=== PATIENT | male | born 1960 | race Caucasian/White ===

== ENCOUNTER 2017-05-01 08:45 | Inpatient (IN) | payer OTHER ==
[~2017-05-01] VITALS: Ht 185.4 cm; Wt 79.4 kg
--- NOTE | 2017-05-01 11:40 | NUR ---
PRE ADMISSION PATIENT MET IN THE INTAKE OFFICE @ 1140 ON 05/01/17. PATIENT IS ALERT AND ORIENTED, HE IS ACCOMPANIED BY HIS . PATIENT SMELLS OF ALCOHOL. ADMITTING VITALS BP116/72, HR 83, O2 96% , T 98 HT 6'1" WEIGHT 175LBS. PATIENT STATES HE IS HERE TO DETOX FROM ALCOHOL. EXPLAINED TO PATIENT THAT ANY NARCOTICS BROUGHT INTO THE HOSPITAL WOULD BE DISPOSED OFF, PT STATES UNDERSTANDING. WILL CONTINUE ASSESSMENT WHEN PATIENT IS ON THE FLOOR.
[2017-05-01] MEDS ORDERED: LORAZEPAM 1 MG TABLET PO PRN ×2 (12:15)
[2017-05-01] MEDS ORDERED: NICOTINE POLACRILEX 4 MG GUM-PK OF TEN BC PRN (12:15)
[2017-05-01] MEDS ORDERED: hydrALAZINE HCL 50 MG TABLET PO PRN (12:15)
[2017-05-01] MEDS ORDERED: DICYCLOMINE HCL 20 MG TABLET PO PRN (12:15)
[2017-05-01] MEDS ORDERED: MIRALAX 17 GM POWD.PACK PO PRN (12:15)
[2017-05-01] MEDS ORDERED: MAG HYDROX/AL HYDROX/SIMETH 30 ML LIQUID UDC PO PRN (12:15)
[2017-05-01] MEDS ORDERED: MAGNESIUM HYDROXIDE 30 ML LIQUID UDC PO PRN (12:15)
[2017-05-01] MEDS ORDERED: ONDANSETRON 4 MG/2 ML VIAL IM PRN (12:15)
[2017-05-01] MEDS ORDERED: LOPERAMIDE HCL 2 MG CAPSULE PO PRN ×2 (12:15)
[2017-05-01] MEDS ORDERED: LORAZEPAM 2 MG/1 ML VIAL IM PRN (12:15)
[2017-05-01] MEDS ORDERED: THIAMINE HCL 200 MG/2 ML VIAL IM ONE (12:15)
[2017-05-01] MEDS ORDERED: diphenhydrAMINE 50 MG CAPSULE PO PRN (12:15)
[2017-05-01] MEDS ORDERED: NICOTINE 14 MG/24HR PATCH TD PRN (12:15)
[2017-05-01] MEDS ORDERED: CHLO473M3 PO (12:46)
[2017-05-01] MEDS ORDERED: METO-356 PO (12:46)
[2017-05-01] MEDS ORDERED: TAMS0.4C34 PO (12:46)
[2017-05-01] MEDS ORDERED: ENZA40CA PO (12:47)
[2017-05-01] MEDS ORDERED: APOTEX PO (12:47)
[2017-05-01] MEDS ORDERED: VITA100D6 PO (12:47)
[2017-05-01] MEDS ORDERED: CYAN100071 PO (12:47)
[2017-05-01] MEDS ORDERED: THIAMINE HCL 100 MG TABLET PO ONE (13:00)
--- NOTE | 2017-05-01 13:00 | NUR ---
ADMISSION NOTE PATIENT IS A 57 YR OLD MALE ADMITTED TO [facility] ON 05/01/17. PATIENT APPEARS MILDLY INTOXICATED UPON ADMISSION AND SMELLS STRONGLY OF ALCOHOL. SPEECH IS SLIGHTLY SLURRED. PATIENT IS HERE TO DETOX FROM ALCOHOL, HISTORY : GIN - 500-750 ML PO DAILY FOR THE PAST YEAR, LAST CONSUMED THIS AM PRIOR TO ADMISSION. PATIENT STATES DUE TO LOSING HIS SISTER THIS PAST YEAR HIS DRINKING HAS INCREASED . PATIENT STATES HE HAS STAGE 4 PROSTATE CANCER ( DIAGNOSED IN DECEMBER 2016 AND IS CURRENTLY BEING TREATED AT [facility] IN [place] BY DR WESTON. PATIENT DECLINES THE PNE/FLU VACCINES DUE TO HIS IMMUNOCOMPROMISED STATE. PATIENT STATES HE WAS SOBER FOR 1.5 YEARS [id number] AFTER GETTING A DUI AND HAVING TO GO TO DRUG/ALCOHOL CLASSES. HE STATES HE GOT ANOTHER DUI THIS YEAR FEB 2017 AND REALIZED THAT HE HAS A SERIOUS PROBLEM AND NEEDED HELP. THIS IS HIS FIRST TIME IN TREATMENT. PATIENT HAS A HISTORY OF OSTEONECROSIS OF THE JAW, HTN, DEPRESSIVE DISORDER, ANXIETY DISORDER AND INSOMNIA. THERE IS A FAMILY HISTORY OF ALCOHOL ABUSE ( HIS 4 SIBLINGS ) AND BIPOLAR ( SISTER WHO PASSED LAST YEAR) PATIENT STATES HE HAS NO SEIZURE HISTORY AND NO HISTORY OF SUICIDE IDEATION OR INTENT. PATIENT STATES HE IS HERE TODAY BECAUSE HE REALIZES AFTER GETTING A DUI IN FEBRUARY 2017 HE WAS DRINKING TOO MUCH AND IT WAS GETTING WORSE. Addendum: 05/01/17 at 1735 by KEN SIMENTAL RN CORRECTION : PROSTATE CANCER WAS DIAGNOSED IN DECEMBER 2014 DR SHELDON HAS SEEN PATIENT AND WILL START AN ATIVAN TAPER TODAY, SKIN INTACT UPON CHECK, CALL LIGHT WITHIN REACH, WILL CONTINUE TO FOLLOW MD PLAN OF CARE. [facility] ON ADMISSION 6 DUE TO PATIENT STILL BEING INTOXICATED.
--- NOTE | 2017-05-01 13:05 | NUR ---
PRN MEDS MOTRIN 600MG PO AND TYLENOL 650 MG PO GIVEN FOR REPORTS OF BODY ACHES WILL CONTINUE TO MONITOR
[2017-05-01] MEDS: ACETAMINOPHEN 325 MG TABLET PO PRN (13:06)
[2017-05-01 13:08] LABS: *AMPHETAMINE, URINE NEGATIVE (NEGATIVE); *BARBITURATE, URINE NEGATIVE (NEGATIVE); *CANNABINOID, URINE POSITIVE (NEGATIVE); *COCCAINE, URINE NEGATIVE (NEGATIVE); *OPIATE, URINE NEGATIVE (NEGATIVE); *PHENCYCLIDINE SCREEN,URINE NEGATIVE (NEGATIVE)
[2017-05-01] MEDS ORDERED: TRAZODONE 50 MG TABLET PO PRN (13:30)
[2017-05-01] MEDS: METHOCARBAMOL 500 MG TABLET PO PRN (13:39)
--- NOTE | 2017-05-01 13:40 | NUR ---
PRN ROBAXIN 750MG PO ROBAXIN GIVEN FOR C/O PAIN 07/28, WILL REASSESS
--- NOTE | 2017-05-01 14:40 | NUR ---
PRN REASSESS PT STATES MOTRIN, TYLENOL AND ROBAXIN ALL EFFECTIVE IN RELIEVING IS BODY ACHES , NOW 04/27 CONTINUE TO MONITOR
[2017-05-01 16:24] LABS: BASOPHILS # (AUTO) 0.1 K/uL (0.0-8.0); EOSINOPHILS # (AUTO) 0.1 K/uL (0.0-0.7); EOSINOPHILS % (AUTO) 1.2 % (0.0-7.0); HEMATOCRIT 46.9 % (36.7-47.1); HEMOGLOBIN 16.5 g/dL (12.5-16.3); LYMPHOCYTES # (AUTO) 3.2 K/uL (20.0-40.0); LYMPHOCYTES % (AUTO) 32.1 % (20.5-51.5); MEAN CORPUSCULAR HEMOGLOBIN 35.4 uug (23.8-33.4); MEAN CORPUSCULAR HGB CONC 35 g/dL (32.5-36.3); MEAN CORPUSCULAR VOLUME 100.8 fL (73.0-96.2); MONOCYTES # (AUTO) 0.5 K/uL (2.0-10.0); MONOCYTES % (AUTO) 4.9 % (0.0-11.0); NEUTROPHILS # (AUTO) 6.1 K/uL (1.8-8.9); NEUTROPHILS % (AUTO) 60.8 % (38.5-71.5); PLATELET COUNT (AUTO) 227 K/uL (152-348); RED BLOOD CELL COUNT(AUTO) 4.66 MIL/uL (4.06-5.63); WHITE BLOOD COUNT (AUTO) 10.1 K/uL (3.6-10.2)
[2017-05-01 16:29] LABS: BILIRUBIN,TOTAL 0.3 mg/dL (0.2-1.0); CREATININE 0.7 mg/dL (0.6-1.3); MAGNESIUM 1.6 mg/dL (1.8-2.4); TOTAL PROTEIN, SERUM 7.4 g/dL (6.4-8.2)
[2017-05-01] MEDS: [UNRECOGNIZED DRUG - OTHER] PO SCH (16:49)
[2017-05-01] MEDS: PENTOXIFYLLINE PO SCH (16:49)
[2017-05-01] MEDS: LORAZEPAM 1 MG TABLET PO SCH ×2 (16:50→21:23)
[2017-05-01] MEDS: CHLORHEXIDINE PO SCH (16:53)
[2017-05-01] MEDS: [UNRECOGNIZED DRUG - OTHER] PO SCH (16:53)
[2017-05-01 17:00] VITALS: BP 133/88
[2017-05-01] MEDS ORDERED: MAGNESIUM OXIDE 400 MG TABLET PO ONE (17:00)
[2017-05-01] MEDS ORDERED: PATIENT MAY USE OWN MED- MD OK PO SCH ×3 (17:00→21:00)
--- NOTE | 2017-05-01 18:59 | NUR ---
END OF SHIFT: PATIENT IS A 57 YR OLD MALE ADMITTED TODAY 05/01/17 TO [facility] FOR WITHDRAWAL FROM ALCOHOL. PATIENT IS ON A 5 DAY ATIVAN TAPER WHICH STARTED THIS AFTERNOON. PATIENT HAS PROSTATE CANCER STAGE 4 AND HAS BROUGHT HIS OWN MEDICATIONS FROM HOME BEING DISPENSED FROM PHARMACY. PATIENT HAD A FLUID INTAKE TODAY OF 1300ML, 2 VOIDS AND 1 BM. LAST CIWA 8 @ 1600. CONTINUE TO FOLLOW MD PLAN OF CARE.
--- NOTE | 2017-05-01 19:30 | NUR ---
START OF SHIFT Received 57 year old male patient admitted on 05/01/17 for ETOH withdrawal. Pt is alert and oriented x4. He started his 5 day Ativan taper today and is tolerating well. Pt noted with anxiety, tremors, restlessness, agitation, depression, irritability,sweats and flushed face. Per endorsement, he received PRN Motrin, Tylenol, and Robaxin. Last CIWA:8 at 1600. Breathing is even and unlabored, safety measures in place. Will continue to monitor.
[2017-05-01 20:00] VITALS: BP 129/79
[2017-05-01] MEDS: TAMSULOSIN PO SCH (21:23)
[2017-05-01] MEDS: [UNRECOGNIZED DRUG - OTHER] PO SCH (21:23)
[2017-05-01] MEDS: [UNRECOGNIZED DRUG - OTHER] PO SCH (21:41)
[2017-05-01] MEDS: ENZALUTAMIDE PO SCH (21:41)
[2017-05-01] MEDS: [UNRECOGNIZED DRUG - OTHER] PO SCH (21:42)
[2017-05-01] MEDS: METOPROLOL PO SCH (21:42)
[2017-05-02] VITALS: BP 113/64
[2017-05-02 04:00] VITALS: BP 118/72
--- NOTE | 2017-05-02 07:07 | NUR ---
END OF SHIFT Pt is a 57 year old male patient admitted on 05/01/17 for ETOH withdrawal. He remains alert and oriented x4. He started his 5 day Ativan taper yesterday. Currently on day 25 and tolerating well. Pt was noted with anxiety, tremors, restlessness, agitation, depression, irritability,sweats and flushed face during shift. He did not receive or request PRN medications. He was able to sleep a total of 11 hrs, Intake:855mL, Void: x1, BM:0, CIWA:9 at 2000. Breathing is even and unlabored, safety measures in place. Endorsed to AM shift.
--- NOTE | 2017-05-02 07:30 | NUR ---
START OF SHIFT Received report from pipe smoker machine operator nurse. Pt is getting ready for the day. He is a 57 yo male admitted to [facility] on 05/01 for ETOH dependence. He is A&O and ambulatory. PMH of prostate cancer and HTN. Pt started a 5 day Ativan taper on 05/01. He brought several home medications. Pt has a flat affect and depressed mood. He has full body tremors, facial flushing, and moist skin. Pt reports sweating while sleeping. Safety measures in place.
[2017-05-02 08:00] VITALS: BP 142/79
[2017-05-02] MEDS: [UNRECOGNIZED DRUG - OTHER] PO SCH ×2 (08:50→17:26)
[2017-05-02] MEDS: CHLORHEXIDINE PO SCH ×2 (08:50→17:26)
[2017-05-02] MEDS: LORAZEPAM 1 MG TABLET PO SCH ×3 (08:51→20:57)
[2017-05-02] MEDS: FOLIC ACID 1 MG TABLET PO SCH (08:51)
[2017-05-02] MEDS: VITAMIN E PO SCH (08:52)
[2017-05-02] MEDS: [UNRECOGNIZED DRUG - OTHER] PO SCH (08:52)
[2017-05-02] MEDS: THIAMINE HCL 100 MG TABLET PO SCH (08:53)
[2017-05-02] MEDS: MULTIVITAMINS,THERAPEUTIC TABLET PO SCH (08:53)
[2017-05-02] MEDS: PENTOXIFYLLINE PO SCH ×3 (08:54→17:26)
[2017-05-02] MEDS: [UNRECOGNIZED DRUG - OTHER] PO SCH ×3 (08:54→17:26)
[2017-05-02] MEDS: IBUPROFEN 400 MG TABLET PO PRN (08:55)
[2017-05-02] MEDS: CYANOCOBALAMIN PO SCH (08:55)
[2017-05-02] MEDS: [UNRECOGNIZED DRUG - OTHER] PO SCH (08:55)
[2017-05-02] MEDS: ENOXAPARIN SODIUM 40 MG/0.4 ML DISP.SYRIN SQ SCH (08:58)
[2017-05-02] MEDS ORDERED: [UNRECOGNIZED DRUG - OTHER] PO SCH (09:00)
[2017-05-02] MEDS ORDERED: METOPROLOL PO SCH (09:00)
[2017-05-02] MEDS ORDERED: [UNRECOGNIZED DRUG - OTHER] PO SCH (09:00)
[2017-05-02] MEDS ORDERED: TUBERCULIN,PURIF.PROT.DERIV. 5 TU/0.1 ML TEST ID ONE (09:00)
[2017-05-02] MEDS ORDERED: ENZALUTAMIDE PO SCH (09:00)
[2017-05-02] MEDS: ONDANSETRON ODT 4 MG TAB.RAPDIS SL PRN (09:03)
--- NOTE | 2017-05-02 09:05 | NUR ---
PRN Motrin and Zofran Pt reports nausea without vomiting and bilateral shoulder pain 5/10. PRN Motrin and Zofran administered.
--- NOTE | 2017-05-02 09:35 | NUR ---
PRN Zofran reassessment PRN Zofran effective. Pt reports nausea is relieved.
--- NOTE | 2017-05-02 10:05 | NUR ---
PRN Motrin reassessment PRN Motrin effective. Pt reports shoulder pain is reduced to 2/10.
[2017-05-02 12:00] VITALS: BP 118/81
[2017-05-02] MEDS: ESCITALOPRAM OXALATE 10 MG TABLET PO SCH (13:27)
--- NOTE | 2017-05-02 13:30 | NUR ---
PRN Ativan Pt has tremors and facial flushing. CIWA score 8. PRN Ativan administered.
--- NOTE | 2017-05-02 14:30 | NUR ---
PRN Ativan reassessment PRN Ativan effective. Pt's CIWA reduced to 5. He is relaxed in bed. Tremors are reduced.
[2017-05-02 16:30] VITALS: BP 135/89
[2017-05-02] MEDS: ACETAMINOPHEN 325 MG TABLET PO PRN (18:53)
--- NOTE | 2017-05-02 18:53 | NUR ---
PRN Tylenol Pt reports generalized body aches and "arthritic pain" 07/28. PRN Tylenol administered. Will endorse to date night caregiver for follow up.
[2017-05-02] MEDS: PATIENT MAY USE OWN MED- MD OK PO SCH (19:01)
--- NOTE | 2017-05-02 19:03 | NUR ---
Nursing Note Pt requested chlorhexadine mouth was to be administered at 0900 and 2100. Okay to adjust order per Dr. Gunter. Medication administered twice today per original order. Non-administered 2099 adjusted dose. Order to continued tomorrow at 0900 and 2100.
--- NOTE | 2017-05-02 19:13 | NUR ---
START OF SHIFT NOTE: 57 year old male presented for Alcohol/"Gin" withdrawal, continues 5 day Ativan taper which tolerated well. Patent reports NKA, is on Full Code, Regular Diet, is on Fall and Seizures Precautions. Patient denies History of withdrawal-induced seizures. Past Medical History: Prostate Cancer Stage 4, HTN, Anxiety, Depression, History of Fall on his back, and got on abscess on buttock in 08/2016. Patient denies SI/HI. Patient is alert and oriented x4. Patient appears anxious, agitated, easily overwhelmed, sad with poor eye contact. Patient noted disheveled, unkempt, and uncombed. Educated in safety and hygiene care. Encouraged to independently perform hygiene care. Last CIWA=5 @1648 per outgoing day shift nurse report: Patient presented with anxiety, agitation, nausea, nervousness, body aches, myalgia, tremors, sweating, fatigue, and restlessness. PRN Motrin 400 mg PO administrated for pain @0855, PRN Zofran 4mg SL administrated for nausea @0903, PRN Ativan 1 mg PO administrated for anxiety @1327, PRN Robaxin 500 mg PO administrated for myalgia @1327, and PRN Tylenol 650 mg PO administrated for severe pain @1853 as ordered were effective per day shift nurse report. Patient remains compliant with treatment, medications and diet regime. Encouraged to fluid intake as tolerated. Encourage to attended groups activities. All needs met. Safety measures in place: Call light within reach, bed is locked in lowest position, padded bed rails up bilaterally. Patient endorsed by day shift nurse. Report received. Will continue to monitor closely.
--- NOTE | 2017-05-02 19:13 | NUR ---
END OF SHIFT Report provided to barber nurse. Pt is lying in bed watching TV. He is a 57 yo male admitted to [facility] on 05/01 for ETOH dependence. He is A&O and ambulatory. PMH of prostate cancer and HTN. Pt started a 5 day Ativan taper on 05/01. Pt has a flat affect and depressed mood. He is disheveled and not motivated for self care at this time. He reports feeling fatigued and could not make it all the way through group meetings. Pt is otherwise cooperative with treatment. He had tremors, nausea, body aches, and facial flushing. PRN Ativan, Zofran, Tylenol, and Motrin administered. He was started on Lexapro today. He drank 2300mL. Pt voided 4x and had 2 formed bowel movements. Last CIWA score 5. Safety measures in place.
[2017-05-02 20:00] VITALS: BP 128/75
[2017-05-02] MEDS: [UNRECOGNIZED DRUG - OTHER] PO SCH (20:59)
[2017-05-02] MEDS: ENZALUTAMIDE PO SCH (20:59)
[2017-05-02] MEDS: [UNRECOGNIZED DRUG - OTHER] PO SCH (20:59)
[2017-05-02] MEDS: METOPROLOL PO SCH (20:59)
[2017-05-02] MEDS: TAMSULOSIN PO SCH (21:00)
[2017-05-02] MEDS: [UNRECOGNIZED DRUG - OTHER] PO SCH (21:00)
[2017-05-03] VITALS: BP 132/98
[2017-05-03 04:00] VITALS: BP 121/74
--- NOTE | 2017-05-03 07:06 | NUR ---
END OF SHIFT NOTE Patient presented for ETOH("Gin") withdrawal, continues 5 Day Ativan Taper with tolerated well. Patient remains compliant with treatment, medications and diet regime. Patient is alert and oriented x4. Patient appears with flat effects, and sad. Education provided to use of Relaxation Techniques: deep breathing exercises, guided imagery, visualization. He is noted disheveled, unshaved, unkempt, with uncombed hair. Educated in safety and hygiene care. Encouraged to independently perform hygiene care. CIWA=9 @2000, CIWA=8@0000. The most recent CIWA=7@0400. Patient presented with anxiety, agitation, nervousness, tremors, stomach pain, sweating, body aches, fatigue, and restlessness. Patient denies SI/HI. Encouraged to increase oral fluid intake as tolerated. Encouraged to attend group activities. No PRN Medications administrated. Patient slept 5 hours, intake 1,700 ml, voided x4, stool x1. All needs met. Safe and calm environment with minimized noises was provided. Safety measures in the place: Call light within reach, bed in the lowest position locked, padded rails up x2. Patient endorsed to day shift nurse.
[2017-05-03 08:02] VITALS: BP 137/88
--- NOTE | 2017-05-03 08:10 | NUR ---
START OF SHIFT: RECEIVED PT A/O X 4. HE IS STRAIGHTENING OUT HIS ROOM. HE PRESENTS WITH ANXIOUS MOOD AND CONGRUENT AFFECT. TREMORS AND SWEATING NOTED. HE REPORTS ANXIETY AND OCCASIONAL FITS OF "GAGGING" HE DENIES N/V. MEDICATED ORDERED . ATIVAN TAPER IN PROGRESS TO MANAGE S/S OF W/D.CIWA 10 HE REPORTS ANXIETY,RESTLESSNESS AND SWEATS. HE REPORTS PAIN TO NECK AND SHOULDERS 5/10 ON PAIN SCALE. PRN MOTRIN ADMINISTERED. WILL MONITOR EFFECTIVENESS OF PRN.ENCOURAGED GROUP ATTENDANCE TO IMPROVE COPING SKILLS AND PREVENT RELAPSE. WILL CONTINUE TO MONITOR AND MANAGE S/S OF W/D.
[2017-05-03] MEDS ORDERED: LORAZEPAM 1 MG TABLET PO SCH ×2 (09:00→21:00)
--- NOTE | 2017-05-03 09:10 | NUR ---
PRN MOTRIN MILDLY EFFECTIVE. HE REPORTS PAIN IS 3/10 ON SCALE. WILL CONTINUE TO MONITOR AND OFFER SUPPORT.
[2017-05-03] MEDS: MULTIVITAMINS,THERAPEUTIC TABLET PO SCH (09:44)
[2017-05-03] MEDS: ESCITALOPRAM OXALATE 10 MG TABLET PO SCH (09:45)
[2017-05-03] MEDS: THIAMINE HCL 100 MG TABLET PO SCH (09:45)
[2017-05-03] MEDS: FOLIC ACID 1 MG TABLET PO SCH (09:45)
[2017-05-03] MEDS: PENTOXIFYLLINE PO SCH ×3 (09:47→16:47)
[2017-05-03] MEDS: VITAMIN E PO SCH (09:47)
[2017-05-03] MEDS: [UNRECOGNIZED DRUG - OTHER] PO SCH (09:47)
[2017-05-03] MEDS: [UNRECOGNIZED DRUG - OTHER] PO SCH ×3 (09:47→16:47)
[2017-05-03] MEDS: CYANOCOBALAMIN PO SCH (09:48)
[2017-05-03] MEDS: [UNRECOGNIZED DRUG - OTHER] PO SCH (09:48)
[2017-05-03] MEDS: ENOXAPARIN SODIUM 40 MG/0.4 ML DISP.SYRIN SQ SCH (09:54)
[2017-05-03] MEDS: PATIENT MAY USE OWN MED- MD OK PO SCH ×2 (09:55→20:38)
[2017-05-03] MEDS: IBUPROFEN 400 MG TABLET PO PRN (10:00)
[2017-05-03] MEDS ORDERED: KETOROLAC TROMETHAMINE 30 MG INJ IM PRN (11:00)
[2017-05-03] MEDS ORDERED: IBUPROFEN 600 MG TABLET PO PRN (11:00)
[2017-05-03 11:07] LABS: HEPATITIS B SURFACE AG Negative (Negative)
[2017-05-03] MEDS ORDERED: BENZOCAINE/MENTH/CETYLPYRD LOZENGE MM PRN (11:15)
[2017-05-03] MEDS: LORAZEPAM 1 MG TABLET PO SCH ×2 (12:09→16:47)
--- NOTE | 2017-05-03 13:28 | NUR ---
Therapist prompted client to attend all groups while in treatment to increase feelings of being connected to others and not be isolated in bedroom. Therapist explained the benefits of attending groups such as learning new coping tools, learning about feelings/emotions and being able to learn to decrease negative feelings and thoughts.
[2017-05-03 13:53] VITALS: BP 144/95
[2017-05-03 16:00] VITALS: BP 127/74
--- NOTE | 2017-05-03 18:56 | NUR ---
END OF SHIFT: PT CONTINUES ON ATIVAN TAPER TO MANAGE S/S OF W/D WHICH INCLUDE TREMORS,ANXIETY,SWEATS AND ACHES AND PAINS TO SHOULDER AND NECK.LAST CIWA 7. PRN MOTRIN GIVEN FOR PAIN AND WAS MILDLY EFFECTIVE. NEW ORDER FOR TORADOL IM PRN AND DID NOT WANT IT ON DAY SHIFT. HE STATES HE WOULD RATHER TAKE IT BEFORE BED TONIGHT. PT ATTENDED SOME GROUPS. WILL PASS SHIFT REPORT TO ONCOMING NIGHT NURSE.
--- NOTE | 2017-05-03 19:15 | NUR ---
Start of Shift Note: Received patient from day shift nurse. Patient is a 57 y.o female admitted on 05/01/17 for ETOH dependence. Patient observed lying in bed and appears with a flushed skin, anxious mood, observed with fine tremors and reports nausea. Currently on a 5-day Ativan taper and tolerating well. Last CIWA is 7. Pt received PRN Motrin for pain and was effective per report. Educated patient current plan of care for the night and medication regimen. Safety measures in place. Will continue to monitor patient.
[2017-05-03 20:00] VITALS: BP 126/76
[2017-05-03] MEDS: [UNRECOGNIZED DRUG - OTHER] PO SCH (20:37)
[2017-05-03] MEDS: ENZALUTAMIDE PO SCH (20:37)
[2017-05-03] MEDS: TAMSULOSIN PO SCH (20:37)
[2017-05-03] MEDS: [UNRECOGNIZED DRUG - OTHER] PO SCH (20:37)
[2017-05-03] MEDS: [UNRECOGNIZED DRUG - OTHER] PO SCH (20:37)
[2017-05-03] MEDS: METOPROLOL PO SCH (20:37)
[2017-05-03] MEDS: ONDANSETRON ODT 4 MG TAB.RAPDIS SL PRN (21:25)
--- NOTE | 2017-05-03 21:25 | NUR ---
PRN Motrin & Zofran Patient complained of nausea and 5/10 pain on his shoulders and back. PRN Zofran SL and Motrin administered as ordered. Will continue to monitor patient.
--- NOTE | 2017-05-03 22:25 | NUR ---
PRN Reassessment Patient verbalized relief from pain and improved nausea after 1 hour of medication administration. Patient currently laying in bed and appears comfortable. Safety measures in place. Will continue to monitor patient.
[2017-05-04] VITALS: BP 99/64
--- NOTE | 2017-05-04 07:27 | NUR ---
End of Shift Note: Patient is a 57 y.o male admitted for medically supervised withdrawal ETOH withdrawal. Patient remains alert & oriented x4. Patient presented with sweating, reports 6/10 shoulder and back pain, nausea & fine tremors. Patient continues on his Ativan taper and tolerating well. Last COWS 9 CIWA 9. Pt received PRN Motrin for pain and Zofran for nausea and were effective. Pt remained stable and vitals note WNL. Will continue to monitor s/s of withdrawal. Pt still asleep at this time. Pt slept for a total of 8hours. Fluid intake: 1796 ml. Voided 1x with no bowel movement during my shift. All needs attended. Safety measures in place. Will endorse to day shift nurse.
--- NOTE | 2017-05-04 07:42 | NUR ---
BEGINNING OF SHIFT Patient endorsement report received from ocean forwarder nurse, all pertinent information discussed. Patient is a 57 year old male with admitting Dx: etoh withdrawal. Patient continues under very close observation, patient scheduled to begin day 4 of 5 day Ativan taper as ordered, Per ocean forwarder patient with last ciwa score of: 8. Received PRN: Motrin and Zofran. per ocean forwarder. slept for 8 hours. Fall and seizure precautions observed at all times. Patient received awake, alert and oriented x4, educated regarding plan of care for the day, and medication regimen with good verbal understanding. fall and seizure precautions observed and in place. will continue to monitor closely. safety measures in place.
[2017-05-04] MEDS ORDERED: LORAZEPAM 1 MG TABLET PO SCH ×3 (09:00→21:00)
[2017-05-04 09:02] VITALS: BP 125/85
[2017-05-04] MEDS: CYANOCOBALAMIN PO SCH (09:14)
[2017-05-04] MEDS: [UNRECOGNIZED DRUG - OTHER] PO SCH (09:14)
[2017-05-04] MEDS: THIAMINE HCL 100 MG TABLET PO SCH (09:14)
[2017-05-04] MEDS: MULTIVITAMINS,THERAPEUTIC TABLET PO SCH (09:14)
[2017-05-04] MEDS: FOLIC ACID 1 MG TABLET PO SCH (09:14)
[2017-05-04] MEDS: ESCITALOPRAM OXALATE 10 MG TABLET PO SCH (09:14)
[2017-05-04] MEDS: VITAMIN E PO SCH (09:15)
[2017-05-04] MEDS: PENTOXIFYLLINE PO SCH ×3 (09:15→16:35)
[2017-05-04] MEDS: [UNRECOGNIZED DRUG - OTHER] PO SCH ×3 (09:15→16:35)
[2017-05-04] MEDS: [UNRECOGNIZED DRUG - OTHER] PO SCH (09:15)
[2017-05-04] MEDS: PATIENT MAY USE OWN MED- MD OK PO SCH ×2 (09:20→20:25)
[2017-05-04] MEDS: ENOXAPARIN SODIUM 40 MG/0.4 ML DISP.SYRIN SQ SCH (09:22)
[2017-05-04 12:54] VITALS: BP 143/88
--- NOTE | 2017-05-04 16:37 | NUR ---
PRN HYDRALAZINE Patient with bp: 158/94 hr: 81, administered hydralazine as ordered for elevated blood pressure, will monitor effectiveness.
[2017-05-04 17:17] VITALS: BP 158/94
[2017-05-04 17:37] VITALS: BP 144/86
--- NOTE | 2017-05-04 17:37 | NUR ---
HYDRALAZINE REASSESSMENT Medication effective, decrease in BP. bp: 144/86 hr: 71, will continue to monitor.
--- NOTE | 2017-05-04 19:00 | NUR ---
END OF SHIFT Patient alert and oriented x4, Patient is anxious, worried, with irritable facial expression. Patients appearance is unkempt, unshaven, with poor hygiene. Patient has clothes thrown on floor and empty water bottles in room, Mood is flat and labile. patient was encouraged to self groom and maintain personal area. Continues on a with ongoing 5 day Ativan taper, currently on day 4 of taper, well tolerated, detox medication effective at reducing withdrawal symptoms. During shift patient presented with: Anxiety, irritability,nausea, tremors. and agitation. Initial ciwa score of:8. Last ciwa score of: 7. Encouraged increase in PO fluid intake as tolerated, to facilitate detox. Received PRN: hydralazine during shift for elevated blood pressure medication was effective. . Influenza swab specimen and strep swab specimen were collected during shift and sent to lab. patient afebrile during shift. patient was encouraged adequate PO fluid intake as tolerated, patient encouraged to develop coping skills and utilization of non pharmacological interventions. Patient was encouraged to participate in therapy session .Encouraged diversional activities to alleviate anxiety. Denies any SI/HI. Safety measures in place. Call light kept with in reach, patient endorsed to slot shift manager nurse, all pertinent information was discussed.
--- NOTE | 2017-05-04 19:15 | NUR ---
Start of Shift Note: Received patient from day shift nurse. Patient is a 57 y.o female admitted on 05/01/17 for ETOH dependence. Upon assesssment, pt is observed lying in bed and appears with a flushed skin, anxious mood, noted with fine tremors and reports 7/10 pain on his shoulders and hips. Pt also complained of productive cough. Currently on a 5-day Ativan taper and tolerating well. Last CIWA is 7. Pt Pt did not received any PRN medications during the day. Educated patient current plan of care for the night and medication regimen. Safety measures in place. Will continue to monitor patient.
[2017-05-04 20:00] VITALS: BP 110/72
[2017-05-04] MEDS: METOPROLOL PO SCH (20:26)
[2017-05-04] MEDS: ENZALUTAMIDE PO SCH (20:26)
[2017-05-04] MEDS: METHOCARBAMOL 500 MG TABLET PO PRN (20:26)
[2017-05-04] MEDS: [UNRECOGNIZED DRUG - OTHER] PO SCH (20:26)
[2017-05-04] MEDS: GABAPENTIN 300 MG CAPSULE PO SCH (20:26)
[2017-05-04] MEDS: [UNRECOGNIZED DRUG - OTHER] PO SCH (20:26)
[2017-05-04] MEDS: GUAIFENESIN LA 600 MG TABLET.SA PO PRN (20:26)
--- NOTE | 2017-05-04 20:26 | NUR ---
PRN Robaxin & Mucinex Patient complained of 7/10 pain on his shoulders and hips. Pt also noted with productive cough. PRN Robaxin and Mucinex administered as ordered. Will monitor for effectiveness of medication.
[2017-05-04] MEDS: TAMSULOSIN PO SCH (20:27)
[2017-05-04] MEDS: [UNRECOGNIZED DRUG - OTHER] PO SCH (20:27)
--- NOTE | 2017-05-04 21:26 | NUR ---
PRN Reassessment Patient verbalized decreased in coughing and decreased in pain levels from 7/10 to 3/10 after medication administration. Pt currently laying in bed and appears comfortable. Safety measures in place. Will continue to monitor patient.
--- NOTE | 2017-05-05 07:06 | NUR ---
End of Shift Note: Patient is a 57 y.o male admitted for medically supervised withdrawal ETOH withdrawal. Patient remains alert & oriented x4. Patient presented with anxiety, 7/10 shoulder and hip pain, fine tremors and was noted with productive cough. Patient continues on his Ativan taper and tolerating well. Last CIWA 7. Pt received PRN Robaxin for pain and Mucinex for cough and were effective. Pt remained stable and vitals note WNL. Will continue to monitor s/s of withdrawal. Pt still asleep at this time. Pt slept for a total of 8 hours. Fluid intake: 796 ml. Voided 1x with no bowel movement during my shift. All needs attended. Safety measures in place. Will endorse to day shift nurse.
--- NOTE | 2017-05-05 07:33 | NUR ---
Start of shift note; Received report from night nurse. Patient is a 57 year old male admitted on 05/01/17 for ETOH withdrawals. Patient was placed on a 5 day Ativan taper. Patient is AOX4, complaining of restless legs, anxiety, diaphoresis, insomnia. Educated patient regarding the importance of compliance to treatment and medication regime, patient verbalized understanding. Encouraged patient to participate in group therapies and activities and to verbalize feelings. All safety measures secured. Will continue to monitor patient.
[2017-05-05 08:00] VITALS: BP 117/73
[2017-05-05] MEDS: PATIENT MAY USE OWN MED- MD OK PO SCH ×2 (08:24→20:52)
[2017-05-05] MEDS: PENTOXIFYLLINE PO SCH ×3 (08:25→16:30)
[2017-05-05] MEDS: FOLIC ACID 1 MG TABLET PO SCH (08:25)
[2017-05-05] MEDS: CYANOCOBALAMIN PO SCH (08:25)
[2017-05-05] MEDS: VITAMIN E PO SCH (08:25)
[2017-05-05] MEDS: [UNRECOGNIZED DRUG - OTHER] PO SCH ×3 (08:25→16:30)
[2017-05-05] MEDS: [UNRECOGNIZED DRUG - OTHER] PO SCH (08:25)
[2017-05-05] MEDS: [UNRECOGNIZED DRUG - OTHER] PO SCH (08:25)
[2017-05-05] MEDS: MULTIVITAMINS,THERAPEUTIC TABLET PO SCH (08:26)
[2017-05-05] MEDS: GABAPENTIN 300 MG CAPSULE PO SCH ×2 (08:26→20:50)
[2017-05-05] MEDS: THIAMINE HCL 100 MG TABLET PO SCH (08:26)
[2017-05-05] MEDS: LORAZEPAM 1 MG TABLET PO SCH ×3 (08:26→20:50)
[2017-05-05] MEDS: ESCITALOPRAM OXALATE 10 MG TABLET PO SCH (08:26)
[2017-05-05] MEDS: ENOXAPARIN SODIUM 40 MG/0.4 ML DISP.SYRIN SQ SCH (08:29)
[2017-05-05] MEDS ORDERED: LORAZEPAM 1 MG TABLET PO SCH (09:00)
[2017-05-05 12:00] VITALS: BP 126/83
[2017-05-05] MEDS ORDERED: TRAZ-144 PO (13:15)
[2017-05-05] MEDS ORDERED: METH500T6 PO (13:15)
[2017-05-05] MEDS ORDERED: GABA-534 PO (13:15)
[2017-05-05] MEDS ORDERED: METO-356 PO (13:15)
[2017-05-05] MEDS ORDERED: ESCI10TA PO (13:15)
[2017-05-05] MEDS ORDERED: IBUP-1955 PO (13:15)
[2017-05-05] MEDS: GUAIFENESIN LA 600 MG TABLET.SA PO PRN (15:11)
--- NOTE | 2017-05-05 15:13 | NUR ---
PRN medication; Patient is complaining of cough, PRN Mucinex dose given as ordered. Will continue to monitor patient for effectiveness of medication.
[2017-05-05 16:00] VITALS: BP 112/67
--- NOTE | 2017-05-05 16:15 | NUR ---
Re-assessment; Patient reported improvement of cough. PRN medication effective.
--- NOTE | 2017-05-05 19:07 | NUR ---
End of shift; Patient is AOX4 appears to be agitated complaining of muscle aches, stomach cramps and anxiety. Patient remained compliant with treatment plan and medication regime. Patient participated in group activities and therapies. Medications were effective in reducing withdrawal symptoms. All safety measures secured. Endorsed to night nurse.
[2017-05-05 20:00] VITALS: BP 118/76
--- NOTE | 2017-05-05 20:00 | NUR ---
START OF SHIFT NOTE RECEIVED REPORT FROM DAY SHIFT NURSE. PATIENT IS A 57 YEAR OLD MALE ADMITTED FOR ETOH WITHDRAWAL. CONTINUE PATIENT ON ATIVAN TAPER, TOLERATED WELL AND NO ADVERSE REACTION. PATIENT DID NOT RECEIVE PRN MEDICATION. LAST CIWA 7. RECEIVE PATIENT IN THE ROOM , ALERT AND ORIENTED X 4. RESPIRATION EVEN AND UNLABORED. PATIENT DISHEVELED, ANXIOUS, SOFT SPEECH, FLUSHED FACE, SWEATING, BILATERAL HAND TREMOR AND MYALGIA. SAFETY MEASURES IN PLACE. CALL LIGHT IN REACH. WILL CONTINUE TO MONITOR.
[2017-05-05] MEDS: TAMSULOSIN PO SCH (20:52)
[2017-05-05] MEDS: [UNRECOGNIZED DRUG - OTHER] PO SCH (20:52)
[2017-05-05] MEDS: [UNRECOGNIZED DRUG - OTHER] PO SCH (20:52)
[2017-05-05] MEDS: ENZALUTAMIDE PO SCH (20:52)
[2017-05-05] MEDS: METOPROLOL PO SCH (20:53)
[2017-05-05] MEDS: [UNRECOGNIZED DRUG - OTHER] PO SCH (20:53)
[2017-05-05] MEDS: METHOCARBAMOL 500 MG TABLET PO PRN (20:56)
--- NOTE | 2017-05-05 20:56 | NUR ---
PRN ROBAXIN ADMINISTRATION PATIENT C/O GENERALIZED MUSCLE ACHES. WILL MONITOR FOR EFFECTIVENESS
--- NOTE | 2017-05-05 21:56 | NUR ---
PRN ROBAXIN RE-ASSESSMENT PATIENT STATES ROBAXIN IS HELPFUL AND EFFECTIVE. NO PAIN AT THIS TIME.
--- NOTE | 2017-05-06 | NUR ---
CIWA DEFERRED PATIENT IN BED WITH EYES CLOSED. VS REFUSED. RESPIRATION EVEN AND UNLABORED. SAFETY MEASURES IN PLACE. CALL LIGHT IN REACH. WILL CONTINUE TO MONITOR
--- NOTE | 2017-05-06 04:00 | NUR ---
CIWA DEFERRED PATIENT IN BED WITH EYES CLOSED. VS REFUSED. RESPIRATION EVEN AND UNLABORED. SAFETY MEASURES IN PLACE. CALL LIGHT IN REACH. WILL CONTINUE TO MONITOR
--- NOTE | 2017-05-06 07:02 | NUR ---
END OF SHIFT NOTE PATIENT SLEPT 6 HOURS. FLUID INTAKE 2,551 ML. VOIDED X . BM. CONTINUE PATIENT ON ATIVAN TAPER, TOLERATED WELL AND NO ADVERSE REACTION. PATIENT WAS DISHEVELED, ANXIOUS, SOFT SPEECH, FLUSHED FACE, SWEATING, BILATERAL HAND TREMOR AND MYALGIA BEGINNING OF SHIFT. PATIENT WAS GIVEN PRN ROBAXIN AT 2055 FOR MUSCLE ACHES, EFFECTIVE. PATIENT COMPLIANT WITH MEDICATION AND TREATMENT PLAN. SAFETY MEASURES IN PLACE. CALL LIGHT IN REACH. WILL CONTINUE TO MONITOR. LAST CIWA 7 .
--- NOTE | 2017-05-06 07:30 | NUR ---
START OF SHIFT PT IS A 57 Y/O M ADMITTED ON 05/01/17 FOR ETOH W/D. RECEIVED PT A/OX4, RESPIRATIONS EVEN AND UNLABORED. PT PRESENTS FACIAL FLUSHING, ANXIETY, RESTLESSNESS, STOMACH CRAMPS, MYALGIA, AND TREMORS ARE NOTED. PT HAS BEEN GIVEN ROBAXIN PRN LAST NIGHT PER CAREER DEVELOPMENT FACILITATOR NURSE. PT IS ON A ATIVAN TAPER THAT STARTED ON 05/01/17 AND TOLERATING WELL. ENCOURAGED PT TO INCREASE FLUIDS FOR HYDRATION. SIDE RAILS UPX2, BED IN LOWEST POSITION. CALL LIGHT IS WITHIN REACH. SAFETY MEASURES IN PLACE. WILL CONTINUE TO MONITOR.
[2017-05-06 08:00] VITALS: BP 115/65
[2017-05-06] MEDS ORDERED: LORAZEPAM 1 MG TABLET PO SCH (09:00)
[2017-05-06] MEDS: [UNRECOGNIZED DRUG - OTHER] PO SCH ×3 (09:31→16:34)
[2017-05-06] MEDS: PENTOXIFYLLINE PO SCH ×3 (09:31→16:34)
[2017-05-06] MEDS: [UNRECOGNIZED DRUG - OTHER] PO SCH (09:31)
[2017-05-06] MEDS: CYANOCOBALAMIN PO SCH (09:31)
[2017-05-06] MEDS: VITAMIN E PO SCH (09:31)
[2017-05-06] MEDS: [UNRECOGNIZED DRUG - OTHER] PO SCH (09:31)
[2017-05-06] MEDS: MULTIVITAMINS,THERAPEUTIC TABLET PO SCH (09:31)
[2017-05-06] MEDS: FOLIC ACID 1 MG TABLET PO SCH (09:32)
[2017-05-06] MEDS: PATIENT MAY USE OWN MED- MD OK PO SCH ×2 (09:32→20:28)
[2017-05-06] MEDS: ESCITALOPRAM OXALATE 10 MG TABLET PO SCH (09:32)
[2017-05-06] MEDS: GABAPENTIN 300 MG CAPSULE PO SCH ×2 (09:32→20:27)
[2017-05-06] MEDS: THIAMINE HCL 100 MG TABLET PO SCH (09:32)
[2017-05-06] MEDS: ENOXAPARIN SODIUM 40 MG/0.4 ML DISP.SYRIN SQ SCH (09:38)
[2017-05-06 12:12] VITALS: BP 137/78
[2017-05-06 16:42] VITALS: BP_SYST 101; BP_SYST 133; BP_DIAS 65; BP_DIAS 85
--- NOTE | 2017-05-06 19:25 | NUR ---
END OF SHIFT PT'S CIWA SCORE 8 THROUGHOUT THE DAY. PT HAS ATTENDED ALL GROUP. PT CONTINUES ON A ATIVAN TAPER STARTED ON 05/01/17 AND TOLERATING WELL. PT HAD NO PRNS DURING SHIFT. PT ATE 100% OF MEALS. PT HAS BEEN COMLPIANT WITH MEDICATION REGIMEN AND TX PLAN. FLUID INTAKE SAFETY MEASURES IN PLACE. WILL GIVE ENDORSEMENT TO TIP FINISHER NURSE.
[2017-05-06] MEDS: GUAIFENESIN LA 600 MG TABLET.SA PO PRN (19:33)
--- NOTE | 2017-05-06 19:33 | NUR ---
PRN MUCINEX ADMINISTRATION PATIENT C/O NON-PRODUCTIVE COUGH. NO SOB. WILL MONITOR FOR EFFECTIVE
[2017-05-06 20:00] VITALS: BP 118/73
--- NOTE | 2017-05-06 20:00 | NUR ---
START OF SHIFT NOTE RECEIVED REPORT FROM DAY SHIFT NURSE. PATIENT IS A 57 YEAR OLD MALE ADMITTED FOR ETOH WITHDRAWAL. PATIENT COMPLETED ATIVAN TAPER, TOLERATED WELL AND NO ADVERSE REACTION. PATIENT IS MEDICALLY CLEARED TO BE DISCHARGE TOMORROW. PATIENT DID NOT RECEIVE PRN MEDICATION. LAST CIWA 7. RECEIVE PATIENT IN THE ROOM , RESTING. PATIENT ALERT AND ORIENTED X 4. RESPIRATION EVEN AND UNLABORED. PATIENT STATES HE JUST WOKE UP. PATIENT STATES HE'S ANXIOUS DUE TO HIM LEAVING TOMORROW. SAFETY MEASURES IN PLACE. CALL LIGHT IN REACH. WILL CONTINUE TO MONITOR.
[2017-05-06] MEDS: [UNRECOGNIZED DRUG - OTHER] PO SCH (20:26)
[2017-05-06] MEDS: [UNRECOGNIZED DRUG - OTHER] PO SCH (20:26)
[2017-05-06] MEDS: ENZALUTAMIDE PO SCH (20:26)
[2017-05-06] MEDS: METOPROLOL PO SCH (20:26)
[2017-05-06] MEDS: [UNRECOGNIZED DRUG - OTHER] PO SCH (20:27)
[2017-05-06] MEDS: TAMSULOSIN PO SCH (20:27)
--- NOTE | 2017-05-07 | NUR ---
CIWA DEFERRED PATIENT IN BED WITH EYES CLOSED. VS REFUSED. RESPIRATION EVEN AND UNLABORED. SAFETY MEASURES IN PLACE. CALL LIGHT IN REACH. WILL CONTINUE TO MONITOR.
--- NOTE | 2017-05-07 04:00 | NUR ---
CIWA DEFERRED PATIENT IN BED WITH EYES CLOSED. VS REFUSED. RESPIRATION EVEN AND UNLABORED. SAFETY MEASURES IN PLACE. CALL LIGHT IN REACH. WILL CONTINUE TO MONITOR.
--- NOTE | 2017-05-07 07:06 | NUR ---
END OF SHIFT NOTE PATIENT SLEPT AT 7 HOURS. FLUID INTAKE 1,350 ML. VOIDED X 2. NO BM. PATIENT IS MEDICALLY CLEARED TO BE DISCHARGE TODAY. PATIENT ANXIOUS BEGINNING OF SHIFT DUE TO HIM LEAVING. PATIENT IN HIS ROOM MOST OF THE SHIFT. COMPLIANT WITH MEDICATION AND TREATMENT PLAN. PATIENT WAS GIVEN PRN MUCINEX FOR NON PRODUCTIVE COUGH, EFFECTIVE. ENCOURAGE FLUIDS. LAST CIWA 1. SAFETY MEASURES IN PLACE. CALL LIGHT IN REACH. WILL CONTINUE TO MONITOR.
--- NOTE | 2017-05-07 07:30 | NUR ---
START OF SHIFT PT IS A 57 Y/O M ADMITTED ON 05/01/17 FOR ETOH W/D. PT IS ON A ATIVAN TAPER THAT STARTED ON 05/01/17 AND TOLERATING WELL. RECEIVED PT A/OX4, RESPIRATIONS EVEN AND UNLABORED. PT PRESENTS FACIAL FLUSHING, ANXIETY, RESTLESSNESS, STOMACH CRAMPS, MYALGIA, AND TREMORS ARE NOTED. PT HAS BEEN GIVEN MUCINEX PRN FOR NON-PRODUCTIVE COUGH LAST NIGHT PER HIGH SCHOOL COMPUTER SCIENCE TEACHER NURSE. ENCOURAGED PT TO INCREASE FLUIDS FOR HYDRATION. SIDE RAILS UPX2, BED IN LOWEST POSITION. CALL LIGHT IS WITHIN REACH. SAFETY MEASURES IN PLACE. WILL CONTINUE TO MONITOR. Addendum: 05/07/17 at 0815 by MILLY WADE RN LAST CIWA 1. PT IS TO BE DISCHARGED TODAY.
[2017-05-07] MEDS: [UNRECOGNIZED DRUG - OTHER] PO SCH (08:51)
[2017-05-07] MEDS: PENTOXIFYLLINE PO SCH (08:51)
[2017-05-07] MEDS: CYANOCOBALAMIN PO SCH (08:51)
[2017-05-07] MEDS: [UNRECOGNIZED DRUG - OTHER] PO SCH (08:51)
[2017-05-07] MEDS: MULTIVITAMINS,THERAPEUTIC TABLET PO SCH (08:52)
[2017-05-07] MEDS: GABAPENTIN 300 MG CAPSULE PO SCH (08:52)
[2017-05-07] MEDS: THIAMINE HCL 100 MG TABLET PO SCH (08:52)
[2017-05-07] MEDS: FOLIC ACID 1 MG TABLET PO SCH (08:52)
[2017-05-07] MEDS: [UNRECOGNIZED DRUG - OTHER] PO SCH (08:52)
[2017-05-07] MEDS: VITAMIN E PO SCH (08:52)
[2017-05-07] MEDS: ESCITALOPRAM OXALATE 10 MG TABLET PO SCH (08:52)
[2017-05-07] MEDS: PATIENT MAY USE OWN MED- MD OK PO SCH (08:53)
[2017-05-07] MEDS: ENOXAPARIN SODIUM 40 MG/0.4 ML DISP.SYRIN SQ SCH (08:58)
--- NOTE | 2017-05-07 09:20 | NUR ---
DISCHARGE NOTE PT IS A/OX4, RESPIRATIONS EVEN AND UNLABORED, VVS. LAST CIWA 1. PT LEFT THE BUILDING IN STABLE CONDITION WITH ALL BELONGINGS, PRESCRIPTIONS AND DISCHARGE PAPERWORK. PT D/C INSTRUCTIONS GIVEN AND PT VERBALIZED UNDERSTANDING. PT HAS BEEN PICKED UP BY "JAIRO FLOREZ".
== END 2017-05-07 09:20 | DRG 895 ==
LOC: SRC 11:08
PROVIDERS: ADMIT Internal Medicine; ATTEND Internal Medicine
PROC: HZ2ZZZZ Detoxification Services for Substance Abuse Treatment (ICD-10-PCS; principal; 2017-05-01)
PROC: HZ41ZZZ Group Counseling for Substance Abuse Treatment, Behavioral (ICD-10-PCS; 2017-05-03)
PROC: HZ31ZZZ Individual Counseling for Substance Abuse Treatment, Behavioral (ICD-10-PCS; 2017-05-04)
DX: F10.239 Alcohol dependence with withdrawal, unspecified (principal); F32.2 Major depressive disorder, single episode, severe without psychotic features; C61 Malignant neoplasm of prostate; M87.88 Other osteonecrosis, other site; E83.42 Hypomagnesemia; I15.9 Secondary hypertension, unspecified; F11.10 Opioid abuse, uncomplicated; Y90.4 Blood alcohol level of 80-99 mg/100 ml; F17.210 Nicotine dependence, cigarettes, uncomplicated; Z81.1 Family history of alcohol abuse and dependence; Z81.8 Family history of other mental and behavioral disorders; G47.00 Insomnia, unspecified; F41.9 Anxiety disorder, unspecified; J00 Acute nasopharyngitis [common cold]
CPT/HCPCS: 36415; 70030-TC; 80307; 80349; 83735; 85025; 86403; 86580; 86592; 86705; 86803; 87070; 87340; 87400; 87806; G0480; J1650; J1885; Q0162